=== PATIENT | female | born 1945 | race Caucasian/White ===

== ENCOUNTER 2017-09-23 10:14 | Inpatient (IN) | payer OTHER, MEDICARE ==
[~2017-09-23] VITALS: Ht 165.1 cm; Wt 91.2 kg
[2017-09-23] VITALS (9 sets, daily range): BP systolic 121–144; BP diastolic 63–102
[~2017-09-23 10:14] MED LIST: ATORVASTATIN CA40 MG PO; AVALIDE 150/1 TABLET PO; AVALIDE 300/1 TABLET PO; BACTRIM,SEPT1 TABLET PO; BETHANECHOL CHL25 MG PO; BRILINTA90 MG PO; DAILY VALUE1 EACH PO; FERROUS SULFAT325 MG PO; LEVEMIR100 UNIT/2 SC; LO-DOSE ASPIRIN81 M2 PO; LOPRESSOR25 MG PO; NOVOLOG 10100 UNITS/ SC; URIBEL CAPSULE1 EACH PO
[2017-09-23 11:06] LABS: HEMATOCRIT 25.5 % (36.0-46.0); MCH 28.4 PG (29.0-34.0); MCHC 32.5 G/DL (30.0-36.0); MCV 87.3 FL (83-99); PLATELET COUNT 344 K/uL (156-360); RBC DIS.WIDTH-CV 12.5 % (11.8-14.6); RBC DIS.WIDTH-SD 40.1 % (39-53); RED BLOOD COUNT 2.92 M/uL (3.80-5.20); WHITE BLOOD COUNT 25.8 K/uL (4.1-10.2)
[2017-09-23 11:17] LABS: CHLORIDE 99 mEq/L (99-109); POTASSIUM 4.6 mEq/L (3.7-5.4); SODIUM 131 mEq/L (136-147)
[2017-09-23 11:20] LABS: ANION GAP 21 MEQ/L (2-14); GLUCOSE 720 mg/dL (70-99)
[2017-09-23 11:23] LABS: GFR ESTIMATE (CALCULATED) 23 mL/min/; UREA NITROGEN (BUN) 28 mg/dL (9-23)
[2017-09-23 11:53] LABS: ADD MIUA? YES; BILIRUBIN NEGATIVE; BLOOD MODERATE; COLOR YELLOW ((YELLOW)); GLUCOSE (STRIP) >=500; KETONES 20; LEUKOCYTES SMALL; NITRITE NEGATIVE; PROTEIN (STRIP) >=500; SPECIFIC GRAVITY 1.018 (1.000-1.030); UROBILINOGEN 0.2 MG/DL (0.2-1.0)
[2017-09-23 11:59] LABS: DEVICE RA; HEMOGLOBIN 8.2 (11.9-15.5); PCO2 22 mm Hg (35-45); PO2 84 mm Hg (80-100); SITE RR; TOTAL RESP RATE 18 resp/min; pH 7.29 (7.35-7.45)
[2017-09-23 12:00] LABS: BASE EXCESS -14.5 mEq/L (-3 to +3); BICARBONATE 10.6 mEq/L (22-26); CARBOXY HGB 0.6 % (0-5); COMMENTS - BLOOD GASES A+C+; METHEMOGLOBIN 1.1 % (0-1.5); O2 SATURATION (CALCULATED) 95.6 % (95-99)
[2017-09-23 12:06] LABS: SAMPLE HEMOLYSIS CHECK 0; SAMPLE ICTERIC CHECK 0; SAMPLE LIPEMIA CHECK 0
[2017-09-23 12:09] LABS: AMORPHOUS URATES CRYSTALS 1+; BACTERIA 3+ /HPF; CASTS NONE SEEN /LPF; CRYSTALS PRESENT; EPITHELIAL CELLS 1+ /HPF; MUCUS NONE SEEN /LPF; RED BLOOD CELLS 0-5 /HPF (0-5); WHITE BLOOD CELLS TNTC /HPF (0-5)
[2017-09-23 13:17] LABS: Estimated Average Glucose 240 mg/dL (70-123)
[2017-09-23] MEDS ORDERED: BRILINTA90 MG PO (13:47)
[2017-09-23] MEDS ORDERED: LOPRESSOR25 MG PO (13:48)
[2017-09-23] MEDS ORDERED: LOSARTAN POTASS50 MG PO (13:49)
[2017-09-23] MEDS ORDERED: NOVOLOG 10100 UNITS/ SC (13:55)
[2017-09-23] MEDS ORDERED: ATORVASTATIN CA40 MG PO (13:56)
[2017-09-23] MEDS ORDERED: FUROSEMIDE20 MG PO (13:57)
[2017-09-23] MEDS ORDERED: NITROSTAT0.4 MG SL (13:58)
[2017-09-23 16:52] LABS: ANION GAP 12 MEQ/L (2-14); CHLORIDE 105 MEQ/L (99-109); GFR ESTIMATE (CALCULATED) 26 mL/min/; GLUCOSE 440 mg/dL (70-99); POTASSIUM 3.6 MEQ/L (3.7-5.4); SAMPLE HEMOLYSIS CHECK 0; SAMPLE ICTERIC CHECK 0; SAMPLE LIPEMIA CHECK 0; SODIUM 134 MEQ/L (136-147); UREA NITROGEN (BUN) 30 mg/dL (9-23)
[2017-09-23 16:58] LABS: METH RESISTANT S AUREUS PCR NEGATIVE (NEGATIVE)
[2017-09-23 17:01] LABS: PROBE CHECK PASS; SPECIMEN PROCESSING CONTROL PASS
[2017-09-23 17:12] LABS: C DIFF TOXIN NEGATIVE (NEGATIVE)
[2017-09-23 17:15] LABS: PROBE CHECK PASS; SPECIMEN PROCESSING CONTROL PASS
[2017-09-23 17:25] LABS: POINT-OF-CARE METER ID UU13113748
[2017-09-23 18:31] LABS: POINT-OF-CARE METER ID UU13113731
[2017-09-23 19:35] LABS: POINT-OF-CARE METER ID UU13113748
[2017-09-23 20:33] LABS: ANION GAP 9 MEQ/L (2-14); CHLORIDE 107 MEQ/L (99-109); POTASSIUM 3.6 MEQ/L (3.7-5.4); SAMPLE HEMOLYSIS CHECK 0; SAMPLE ICTERIC CHECK 0; SAMPLE LIPEMIA CHECK 0; SODIUM 134 MEQ/L (136-147)
[2017-09-23 20:38] LABS: POINT-OF-CARE METER ID UU13113748
[2017-09-23 20:39] LABS: GFR ESTIMATE (CALCULATED) 28 mL/min/; GLUCOSE 276 mg/dL (70-99); UREA NITROGEN (BUN) 30 mg/dL (9-23)
[2017-09-23 21:27] LABS: POINT-OF-CARE METER ID UU13113748
[2017-09-23 22:41] LABS: POINT-OF-CARE METER ID UU13113731
[2017-09-23 23:37] LABS: POINT-OF-CARE METER ID UU13113731
[2017-09-24] VITALS (16 sets, daily range): BP systolic 126–172; BP diastolic 58–99
[2017-09-24 00:14] LABS: POTASSIUM 3.9 mEq/L (3.7-5.4); SODIUM 136 mEq/L (136-147)
[2017-09-24 00:16] LABS: GLUCOSE 151 mg/dL (70-99)
[2017-09-24 00:18] LABS: ANION GAP 9 MEQ/L (2-14)
[2017-09-24 00:20] LABS: GFR ESTIMATE (CALCULATED) 26 mL/min/
[2017-09-24 00:21] LABS: UREA NITROGEN (BUN) 32 mg/dL (9-23)
[2017-09-24 00:22] LABS: CHLORIDE 110 mEq/L (99-109)
[2017-09-24 00:35] LABS: POINT-OF-CARE METER ID UU13113731
[2017-09-24 01:36] LABS: POINT-OF-CARE METER ID UU13113731
[2017-09-24 03:38] LABS: POINT-OF-CARE METER ID UU13113731
[2017-09-24 04:32] LABS: POINT-OF-CARE METER ID UU13113731
[2017-09-24 05:15] LABS: CHLORIDE 109 mEq/L (99-109); POTASSIUM 4.4 mEq/L (3.7-5.4); SODIUM 138 mEq/L (136-147)
[2017-09-24 05:17] LABS: GLUCOSE 166 mg/dL (70-99)
[2017-09-24 05:18] LABS: ANION GAP 13 MEQ/L (2-14)
[2017-09-24 05:21] LABS: GFR ESTIMATE (CALCULATED) 29 mL/min/; UREA NITROGEN (BUN) 32 mg/dL (9-23)
[2017-09-24 05:32] LABS: POINT-OF-CARE METER ID UU13113731
[2017-09-24 06:38] LABS: POINT-OF-CARE METER ID UU13113731
[2017-09-24 08:00] LABS: POINT-OF-CARE METER ID UU13113731
[2017-09-24 08:46] LABS: HEMATOCRIT 23.2 % (36.0-46.0); MCH 28.9 PG (29.0-34.0); MCHC 33.2 G/DL (30.0-36.0); MCV 87.2 FL (83-99); MEAN PLAT.VOLUME 9.9 uM^3 (9.5-12.4); PLATELET COUNT 294 K/uL (156-360); RBC DIS.WIDTH-SD 41.1 % (39-53); RED BLOOD COUNT 2.66 M/uL (3.80-5.20); WHITE BLOOD COUNT 19.3 K/uL (4.1-10.2)
[2017-09-24 08:49] LABS: POINT-OF-CARE METER ID UU13113731
[2017-09-24 09:11] LABS: ANION GAP 9 MEQ/L (2-14); CHLORIDE 109 MEQ/L (99-109); GFR ESTIMATE (CALCULATED) 31 mL/min/; GLUCOSE 157 mg/dL (70-99); POTASSIUM 4.3 MEQ/L (3.7-5.4); SAMPLE HEMOLYSIS CHECK 0; SAMPLE ICTERIC CHECK 0; SAMPLE LIPEMIA CHECK 0; SODIUM 137 MEQ/L (136-147); UREA NITROGEN (BUN) 32 mg/dL (9-23)
[2017-09-24 10:07] LABS: POINT-OF-CARE METER ID UU13113731
[2017-09-24 11:14] LABS: POINT-OF-CARE METER ID UU13113731
[2017-09-24 12:17] LABS: POINT-OF-CARE METER ID UU13113731
[2017-09-24 13:40] LABS: POINT-OF-CARE METER ID UU13113731
[2017-09-24 14:04] LABS: POINT-OF-CARE METER ID UU14314082
[2017-09-24 15:12] LABS: POINT-OF-CARE METER ID UU14314082
[2017-09-24 17:21] LABS: POINT-OF-CARE METER ID UU14314082
[2017-09-24 17:43] LABS: ANION GAP 7 MEQ/L (2-14); CHLORIDE 105 MEQ/L (99-109); GFR ESTIMATE (CALCULATED) 34 mL/min/; GLUCOSE 224 mg/dL (70-99); POTASSIUM 4.2 MEQ/L (3.7-5.4); SAMPLE HEMOLYSIS CHECK 0; SAMPLE ICTERIC CHECK 0; SAMPLE LIPEMIA CHECK 0; SODIUM 131 MEQ/L (136-147); UREA NITROGEN (BUN) 31 mg/dL (9-23)
[2017-09-24 20:45] LABS: POINT-OF-CARE METER ID UU13113748
[2017-09-24 23:49] LABS: POINT-OF-CARE METER ID UU13113748
[2017-09-25] VITALS (10 sets, daily range): BP systolic 0–182; BP diastolic 0–106
[2017-09-25 02:22] LABS: POINT-OF-CARE METER ID UU13113731
[2017-09-25 06:23] LABS: ANION GAP 9 MEQ/L (2-14); CHLORIDE 106 MEQ/L (99-109); GFR ESTIMATE (CALCULATED) 39 mL/min/; GLUCOSE 144 mg/dL (70-99); POTASSIUM 4.2 MEQ/L (3.7-5.4); SAMPLE HEMOLYSIS CHECK 0; SAMPLE ICTERIC CHECK 0; SAMPLE LIPEMIA CHECK 0; SODIUM 136 MEQ/L (136-147); UREA NITROGEN (BUN) 28 mg/dL (9-23)
[2017-09-25 07:42] LABS: EOSINOPHIL (%) 0.3 % (0-5); EOSINOPHIL COUNT 0.1 K/uL (0-0.3); HEMATOCRIT 23.3 % (36.0-46.0); IMMATURE GRANULOCYTE (%) 0.9 % (0.0-0.7); IMMATURE GRANULOCYTE COUNT 0.2 K/uL; INSTRUMENT ABS NEUTROPHIL CT 15.8 K/uL; LYMPHOCYTE COUNT 0.6 K/uL (1.0-2.8); MCH 29.2 PG (29.0-34.0); MCV 88.3 FL (83-99); MEAN PLAT.VOLUME 10.3 uM^3 (9.5-12.4); MONOCYTE (%) 5.2 % (3-12); MONOCYTE COUNT 0.9 K/uL (0-0.8); NEUTROPHIL (%) 89.9 % (45-76); NEUTROPHIL COUNT 15.8 K/uL (1.8-6.4); PLATELET COUNT 315 K/uL (156-360); RBC DIS.WIDTH-CV 13.1 % (11.8-14.6); RBC DIS.WIDTH-SD 41.8 % (39-53); RED BLOOD COUNT 2.64 M/uL (3.80-5.20); WHITE BLOOD COUNT 17.6 K/uL (4.1-10.2)
[2017-09-25 07:53] LABS: MAGNESIUM 1.7 mg/dl (1.3-2.7)
[2017-09-25 11:54] LABS: POINT-OF-CARE METER ID UU14314084
[2017-09-25 14:28] LABS: ANION GAP 11 MEQ/L (2-14); CHLORIDE 106 MEQ/L (99-109); GFR ESTIMATE (CALCULATED) 36 mL/min/; POTASSIUM 3.9 MEQ/L (3.7-5.4); SAMPLE HEMOLYSIS CHECK 0; SAMPLE ICTERIC CHECK 0; SAMPLE LIPEMIA CHECK 0; SODIUM 134 MEQ/L (136-147); UREA NITROGEN (BUN) 27 mg/dL (9-23)
[2017-09-25 14:29] LABS: GLUCOSE 102 mg/dL (70-99)
[2017-09-25 16:55] LABS: POINT-OF-CARE METER ID UU14314084
[2017-09-25 21:28] LABS: POINT-OF-CARE METER ID UU13113702
[2017-09-25 21:28] LABS: POINT-OF-CARE METER ID UU13113731
[2017-09-25 21:28] LABS: POINT-OF-CARE METER ID UU13113702
[2017-09-25 21:28] LABS: POINT-OF-CARE METER ID UU13113702
[2017-09-25 22:07] LABS: POINT-OF-CARE METER ID UU14162508
[2017-09-26] VITALS (10 sets, daily range): BP systolic 161–189; BP diastolic 75–92
[2017-09-26 05:55] LABS: EOSINOPHIL (%) 0.8 % (0-5); EOSINOPHIL COUNT 0.1 K/uL (0-0.3); HEMATOCRIT 22.1 % (36.0-46.0); IMMATURE GRANULOCYTE (%) 0.9 % (0.0-0.7); IMMATURE GRANULOCYTE COUNT 0.1 K/uL; INSTRUMENT ABS NEUTROPHIL CT 10.6 K/uL; LYMPHOCYTE COUNT 1.2 K/uL (1.0-2.8); MCH 27.5 PG (29.0-34.0); MCHC 32.1 G/DL (30.0-36.0); MCV 85.7 FL (83-99); MEAN PLAT.VOLUME 9.8 uM^3 (9.5-12.4); MONOCYTE COUNT 0.8 K/uL (0-0.8); NEUTROPHIL (%) 82.9 % (45-76); NEUTROPHIL COUNT 10.6 K/uL (1.8-6.4); PLATELET COUNT 342 K/uL (156-360); RBC DIS.WIDTH-CV 12.9 % (11.8-14.6); RBC DIS.WIDTH-SD 40.8 % (39-53); RED BLOOD COUNT 2.58 M/uL (3.80-5.20); WHITE BLOOD COUNT 12.8 K/uL (4.1-10.2)
[2017-09-26 06:32] LABS: ANION GAP 8 MEQ/L (2-14); CHLORIDE 107 MEQ/L (99-109); GFR ESTIMATE (CALCULATED) 36 mL/min/; POTASSIUM 3.9 MEQ/L (3.7-5.4); SAMPLE HEMOLYSIS CHECK 0; SAMPLE ICTERIC CHECK 0; SAMPLE LIPEMIA CHECK 0; SODIUM 136 MEQ/L (136-147); UREA NITROGEN (BUN) 28 mg/dL (9-23)
[2017-09-26 06:34] LABS: GLUCOSE 65 mg/dL (70-99)
[2017-09-26 06:38] LABS: POINT-OF-CARE METER ID UU14162508
[2017-09-26 07:21] LABS: POINT-OF-CARE METER ID UU14314084
[2017-09-26 11:34] LABS: POINT-OF-CARE METER ID UU14208750
[2017-09-26 15:17] LABS: POINT-OF-CARE METER ID UU14314084
[2017-09-26 15:23] LABS: ANION GAP 12 MEQ/L (2-14); CHLORIDE 105 MEQ/L (99-109); POTASSIUM 3.8 MEQ/L (3.7-5.4); SAMPLE HEMOLYSIS CHECK 0; SAMPLE ICTERIC CHECK 0; SAMPLE LIPEMIA CHECK 0; SODIUM 137 MEQ/L (136-147)
[2017-09-26 15:33] LABS: GFR ESTIMATE (CALCULATED) 36 mL/min/; GLUCOSE 61 mg/dL (70-99); UREA NITROGEN (BUN) 27 mg/dL (9-23)
[2017-09-26 15:43] LABS: POINT-OF-CARE METER ID UU14314084
[2017-09-26 17:15] LABS: POINT-OF-CARE METER ID UU14162508
[2017-09-26 17:54] LABS: POINT-OF-CARE METER ID UU14208750
[2017-09-26 19:55] LABS: POINT-OF-CARE METER ID UU13113675
[2017-09-26 21:47] LABS: POINT-OF-CARE METER ID UU14162508
[2017-09-27] VITALS (7 sets, daily range): BP systolic 118–193; BP diastolic 68–88
[2017-09-27 06:34] LABS: POINT-OF-CARE METER ID UU14162508
[2017-09-27 08:44] LABS: EOSINOPHIL (%) 0.9 % (0-5); EOSINOPHIL COUNT 0.1 K/uL (0-0.3); HEMATOCRIT 26.4 % (36.0-46.0); IMMATURE GRANULOCYTE COUNT 0.1 K/uL; INSTRUMENT ABS NEUTROPHIL CT 10.9 K/uL; LYMPHOCYTE COUNT 1.1 K/uL (1.0-2.8); MCH 29.3 PG (29.0-34.0); MCHC 33.7 G/DL (30.0-36.0); MCV 86.8 FL (83-99); MEAN PLAT.VOLUME 9.7 uM^3 (9.5-12.4); MONOCYTE (%) 6.9 % (3-12); MONOCYTE COUNT 0.9 K/uL (0-0.8); NEUTROPHIL (%) 82.5 % (45-76); NEUTROPHIL COUNT 10.9 K/uL (1.8-6.4); PLATELET COUNT 335 K/uL (156-360); RBC DIS.WIDTH-SD 41.2 % (39-53); RED BLOOD COUNT 3.04 M/uL (3.80-5.20); WHITE BLOOD COUNT 13.3 K/uL (4.1-10.2)
[2017-09-27 09:13] LABS: ANION GAP 13 MEQ/L (2-14); CHLORIDE 106 MEQ/L (99-109); GFR ESTIMATE (CALCULATED) 36 mL/min/; POTASSIUM 3.7 MEQ/L (3.7-5.4); SAMPLE HEMOLYSIS CHECK 0; SAMPLE ICTERIC CHECK 0; SAMPLE LIPEMIA CHECK 0; SODIUM 140 MEQ/L (136-147); UREA NITROGEN (BUN) 22 mg/dL (9-23)
[2017-09-27 09:22] LABS: GLUCOSE 129 mg/dL (70-99)
[2017-09-27 11:33] LABS: POINT-OF-CARE METER ID UU14162508
[2017-09-27 16:11] LABS: POINT-OF-CARE METER ID UU14162508
[2017-09-27 21:43] LABS: POINT-OF-CARE METER ID UU14162508
[2017-09-28] VITALS (10 sets, daily range): BP systolic 161–191; BP diastolic 71–87
[2017-09-28 06:36] LABS: POINT-OF-CARE METER ID UU14208750
[2017-09-28 08:42] LABS: BASOPHIL COUNT 0.1 K/uL (0-0.1); EOSINOPHIL (%) 2.5 % (0-5); EOSINOPHIL COUNT 0.3 K/uL (0-0.3); HEMATOCRIT 25.4 % (36.0-46.0); IMMATURE GRANULOCYTE (%) 2.7 % (0.0-0.7); IMMATURE GRANULOCYTE COUNT 0.3 K/uL; INSTRUMENT ABS NEUTROPHIL CT 8.2 K/uL; LYMPHOCYTE COUNT 1.3 K/uL (1.0-2.8); MCH 28.2 PG (29.0-34.0); MCHC 32.3 G/DL (30.0-36.0); MCV 87.3 FL (83-99); MEAN PLAT.VOLUME 9.5 uM^3 (9.5-12.4); MONOCYTE (%) 7.4 % (3-12); MONOCYTE COUNT 0.8 K/uL (0-0.8); NEUTROPHIL COUNT 8.2 K/uL (1.8-6.4); PLATELET COUNT 346 K/uL (156-360); RBC DIS.WIDTH-CV 12.8 % (11.8-14.6); RBC DIS.WIDTH-SD 40.7 % (39-53); RED BLOOD COUNT 2.91 M/uL (3.80-5.20); WHITE BLOOD COUNT 10.9 K/uL (4.1-10.2)
[2017-09-28 08:57] LABS: ANION GAP 10 MEQ/L (2-14); CHLORIDE 108 MEQ/L (99-109); GFR ESTIMATE (CALCULATED) 39 mL/min/; GLUCOSE 128 mg/dL (70-99); SAMPLE HEMOLYSIS CHECK 0; SAMPLE ICTERIC CHECK 0; SAMPLE LIPEMIA CHECK 0; SODIUM 141 MEQ/L (136-147); UREA NITROGEN (BUN) 23 mg/dL (9-23)
[2017-09-28 12:08] LABS: POINT-OF-CARE METER ID UU14208750
[2017-09-28 16:50] LABS: POINT-OF-CARE METER ID UU14162508
[2017-09-28 21:56] LABS: POINT-OF-CARE METER ID UU13113675
[2017-09-28 22:46] LABS: POINT-OF-CARE METER ID UU14162508
[2017-09-28 23:36] LABS: MCV 87.8 FL (83-99)
[2017-09-29] VITALS (14 sets, daily range): BP systolic 118–195; BP diastolic 70–89
[2017-09-29 06:08] LABS: BASOPHIL COUNT 0.1 K/uL (0-0.1); EOSINOPHIL (%) 3.1 % (0-5); EOSINOPHIL COUNT 0.3 K/uL (0-0.3); HEMATOCRIT 26.3 % (36.0-46.0); IMMATURE GRANULOCYTE (%) 4.8 % (0.0-0.7); IMMATURE GRANULOCYTE COUNT 0.5 K/uL; LYMPHOCYTE COUNT 1.2 K/uL (1.0-2.8); MCH 29.1 PG (29.0-34.0); MCHC 32.7 G/DL (30.0-36.0); MCV 88.9 FL (83-99); MEAN PLAT.VOLUME 9.4 uM^3 (9.5-12.4); MONOCYTE (%) 7.1 % (3-12); MONOCYTE COUNT 0.8 K/uL (0-0.8); NEUTROPHIL (%) 73.3 % (45-76); PLATELET COUNT 321 K/uL (156-360); RBC DIS.WIDTH-CV 13.1 % (11.8-14.6); RBC DIS.WIDTH-SD 42.1 % (39-53); RED BLOOD COUNT 2.96 M/uL (3.80-5.20); WHITE BLOOD COUNT 10.9 K/uL (4.1-10.2)
[2017-09-29 06:33] LABS: ANION GAP 9 MEQ/L (2-14); CHLORIDE 107 MEQ/L (99-109); GFR ESTIMATE (CALCULATED) 34 mL/min/; GLUCOSE 146 mg/dL (70-99); POTASSIUM 4.1 MEQ/L (3.7-5.4); SAMPLE HEMOLYSIS CHECK 0; SAMPLE ICTERIC CHECK 0; SAMPLE LIPEMIA CHECK 0; SODIUM 138 MEQ/L (136-147); UREA NITROGEN (BUN) 25 mg/dL (9-23)
[2017-09-29 06:44] LABS: POINT-OF-CARE METER ID UU14208750
[2017-09-29 11:18] LABS: POINT-OF-CARE METER ID UU14162508; POINT-OF-CARE USER ID PUTDRM
[2017-09-29 17:03] LABS: POINT-OF-CARE METER ID UU14208750; POINT-OF-CARE USER ID PUTDRM
[2017-09-29 21:31] LABS: POINT-OF-CARE METER ID UU14208750
[2017-09-30] VITALS (8 sets, daily range): BP systolic 175–195; BP diastolic 72–82
[2017-09-30 06:33] LABS: POINT-OF-CARE METER ID UU14162508
[2017-09-30 06:58] LABS: POINT-OF-CARE METER ID UU14162508
[2017-09-30 11:32] LABS: POINT-OF-CARE METER ID UU14162508
[2017-09-30 16:20] LABS: POINT-OF-CARE METER ID UU14162508
[2017-09-30 21:58] LABS: POINT-OF-CARE METER ID UU14162508
[2017-10-01 03:42] VITALS: BP 170/80
[2017-10-01 06:46] LABS: POINT-OF-CARE METER ID UU14162508
[2017-10-01 07:10] VITALS: BP 158/78
[2017-10-01 07:46] LABS: HEMATOCRIT 26.7 % (36.0-46.0); MCH 30.1 PG (29.0-34.0); MCHC 33.7 G/DL (30.0-36.0); MCV 89.3 FL (83-99); MEAN PLAT.VOLUME 9.2 uM^3 (9.5-12.4); PLATELET COUNT 323 K/uL (156-360); RBC DIS.WIDTH-CV 13.5 % (11.8-14.6); RBC DIS.WIDTH-SD 43.1 % (39-53); RED BLOOD COUNT 2.99 M/uL (3.80-5.20); WHITE BLOOD COUNT 8.6 K/uL (4.1-10.2)
[2017-10-01 08:16] LABS: ANION GAP 13 MEQ/L (2-14); CHLORIDE 106 MEQ/L (99-109); GFR ESTIMATE (CALCULATED) 36 mL/min/; GLUCOSE 131 mg/dL (70-99); POTASSIUM 3.6 MEQ/L (3.7-5.4); SAMPLE HEMOLYSIS CHECK 0; SAMPLE ICTERIC CHECK 0; SAMPLE LIPEMIA CHECK 0; SODIUM 142 MEQ/L (136-147); UREA NITROGEN (BUN) 18 mg/dL (9-23)
[2017-10-01 11:00] VITALS: BP 182/91
[2017-10-01 11:37] LABS: POINT-OF-CARE METER ID UU14162508
[2017-10-01 16:52] VITALS: BP 142/78
[2017-10-01 16:59] LABS: POINT-OF-CARE METER ID UU14162508
[2017-10-01 19:49] VITALS: BP 160/80
[2017-10-01 21:49] LABS: POINT-OF-CARE METER ID UU14162508
[2017-10-01 23:31] VITALS: BP 173/77
[2017-10-02 06:32] LABS: POINT-OF-CARE METER ID UU14208750
[2017-10-02 07:35] LABS: ANION GAP 9 MEQ/L (2-14); CHLORIDE 106 MEQ/L (99-109); GFR ESTIMATE (CALCULATED) 43 mL/min/; POTASSIUM 4.1 MEQ/L (3.7-5.4); SAMPLE HEMOLYSIS CHECK 0; SAMPLE ICTERIC CHECK 0; SAMPLE LIPEMIA CHECK 0; SODIUM 140 MEQ/L (136-147); UREA NITROGEN (BUN) 18 mg/dL (9-23)
[2017-10-02 07:36] LABS: GLUCOSE 197 mg/dL (70-99)
[2017-10-02 09:42] VITALS: BP 144/80
[2017-10-02 11:53] LABS: POINT-OF-CARE METER ID UU14162508
[2017-10-02 17:04] LABS: POINT-OF-CARE METER ID UU14208750
[2017-10-02 17:18] VITALS: BP 148/78
[2017-10-02 21:22] LABS: POINT-OF-CARE METER ID UU14208750
[2017-10-02 23:38] VITALS: BP 168/75
[2017-10-03 06:44] LABS: POINT-OF-CARE METER ID UU14314084
[2017-10-03 06:53] LABS: HEMATOCRIT 21.3 % (36.0-46.0); MCH 29.1 PG (29.0-34.0); MCHC 33.3 G/DL (30.0-36.0); MCV 87.3 FL (83-99); MEAN PLAT.VOLUME 9.5 uM^3 (9.5-12.4); PLATELET COUNT 310 K/uL (156-360); RBC DIS.WIDTH-CV 13.3 % (11.8-14.6); RED BLOOD COUNT 2.44 M/uL (3.80-5.20); WHITE BLOOD COUNT 8.4 K/uL (4.1-10.2)
[2017-10-03 07:11] LABS: INTER. NORMALIZED RATIO 1.1; PROTHROMBIN TIME 12.6 SEC (10.2-12.9)
[2017-10-03 07:24] LABS: ANION GAP 9 MEQ/L (2-14); CHLORIDE 104 MEQ/L (99-109); GFR ESTIMATE (CALCULATED) 43 mL/min/; GLUCOSE 155 mg/dL (70-99); SAMPLE HEMOLYSIS CHECK 0; SAMPLE ICTERIC CHECK 0; SAMPLE LIPEMIA CHECK 0; SODIUM 138 MEQ/L (136-147); UREA NITROGEN (BUN) 16 mg/dL (9-23)
[2017-10-03 07:40] VITALS: BP 200/82
[2017-10-03 12:02] LABS: POINT-OF-CARE METER ID UU14314084
[2017-10-03 16:27] LABS: POINT-OF-CARE METER ID UU13113675
[2017-10-03 18:31] VITALS: BP 190/72
[2017-10-03 21:47] LABS: POINT-OF-CARE METER ID UU14208750
[2017-10-03 23:27] VITALS: BP 160/80
[2017-10-04 03:30] VITALS: BP 160/85
[2017-10-04 06:29] LABS: POINT-OF-CARE METER ID UU14208750
[2017-10-04 06:55] LABS: HEMATOCRIT 23.6 % (36.0-46.0); MCH 29.6 PG (29.0-34.0); MCHC 33.9 G/DL (30.0-36.0); MCV 87.4 FL (83-99); MEAN PLAT.VOLUME 9.8 uM^3 (9.5-12.4); PLATELET COUNT 297 K/uL (156-360); RBC DIS.WIDTH-CV 13.7 % (11.8-14.6); RBC DIS.WIDTH-SD 42.6 % (39-53); WHITE BLOOD COUNT 10.6 K/uL (4.1-10.2)
[2017-10-04 07:19] LABS: ANION GAP 7 MEQ/L (2-14); CHLORIDE 101 MEQ/L (99-109); GFR ESTIMATE (CALCULATED) 43 mL/min/; GLUCOSE 130 mg/dL (70-99); POTASSIUM 3.6 MEQ/L (3.7-5.4); SAMPLE HEMOLYSIS CHECK 0; SAMPLE ICTERIC CHECK 0; SAMPLE LIPEMIA CHECK 0; SODIUM 137 MEQ/L (136-147); UREA NITROGEN (BUN) 13 mg/dL (9-23)
[2017-10-04 07:38] VITALS: BP 183/81
[2017-10-04 11:37] VITALS: BP 169/74
[2017-10-04 11:54] LABS: POINT-OF-CARE METER ID UU14208750
[2017-10-04 15:56] VITALS: BP 175/76
[2017-10-04 16:29] LABS: POINT-OF-CARE METER ID UU14208750
[2017-10-04 19:15] VITALS: BP 153/65
[2017-10-04 21:56] LABS: POINT-OF-CARE METER ID UU14208750
[2017-10-04 23:00] VITALS: BP 180/79
[2017-10-05 03:00] VITALS: BP 167/72
[2017-10-05 06:27] LABS: POINT-OF-CARE METER ID UU14208750
[2017-10-05 07:10] LABS: BASOPHIL COUNT 0.1 K/uL (0-0.1); EOSINOPHIL (%) 1.5 % (0-5); EOSINOPHIL COUNT 0.2 K/uL (0-0.3); HEMATOCRIT 23.1 % (36.0-46.0); IMMATURE GRANULOCYTE (%) 1.2 % (0.0-0.7); IMMATURE GRANULOCYTE COUNT 0.1 K/uL; INSTRUMENT ABS NEUTROPHIL CT 8.9 K/uL; LYMPHOCYTE COUNT 1.1 K/uL (1.0-2.8); MCH 28.9 PG (29.0-34.0); MCHC 33.3 G/DL (30.0-36.0); MCV 86.8 FL (83-99); MEAN PLAT.VOLUME 9.9 uM^3 (9.5-12.4); MONOCYTE COUNT 0.7 K/uL (0-0.8); NEUTROPHIL (%) 80.8 % (45-76); NEUTROPHIL COUNT 8.9 K/uL (1.8-6.4); PLATELET COUNT 316 K/uL (156-360); RBC DIS.WIDTH-CV 13.6 % (11.8-14.6); RBC DIS.WIDTH-SD 42.4 % (39-53); RED BLOOD COUNT 2.66 M/uL (3.80-5.20)
[2017-10-05 07:30] VITALS: BP 165/80
[2017-10-05 07:32] LABS: ANION GAP 8 MEQ/L (2-14); CHLORIDE 101 MEQ/L (99-109); GFR ESTIMATE (CALCULATED) 43 mL/min/; GLUCOSE 168 mg/dL (70-99); MAGNESIUM 1.5 mg/dl (1.3-2.7); POTASSIUM 3.6 MEQ/L (3.7-5.4); SAMPLE HEMOLYSIS CHECK 0; SAMPLE ICTERIC CHECK 0; SAMPLE LIPEMIA CHECK 0; SODIUM 138 MEQ/L (136-147); UREA NITROGEN (BUN) 15 mg/dL (9-23)
[2017-10-05 12:35] LABS: POINT-OF-CARE METER ID UU14162508
[2017-10-05] MEDS ORDERED: AUGMENTIN875 MG PO (14:20)
[2017-10-05] MEDS ORDERED: LEVEMIR FL100 UNIT/1 SC (14:24)
[2017-10-05] MEDS ORDERED: HYDRALAZINE HCL25 MG PO (14:31)
[2017-10-05 15:37] VITALS: BP 170/60
[2017-10-05 16:48] LABS: POINT-OF-CARE METER ID UU14162508
== END 2017-10-05 18:03 | DRG 853 ==
LOC: EME 10:14 → 4WEST 13:24 → EDOF 13:24 → 2EAST 13:24 → ENRESERV 13:25 → EDOF 13:35 → 4WEST 15:13 → ENRESERV 09-25 06:41 → 2EAST 09-25 11:15
PROVIDERS: Emergency Medicine; Family Medicine; Internal Medicine; Internal Medicine Critical Care Medicine; Physician Assistant; Podiatrist Foot & Ankle Surgery; Surgery
DX: A40.1 Sepsis due to streptococcus, group B (principal); A48.0 Gas gangrene; E11.10 Type 2 diabetes mellitus with ketoacidosis without coma; E11.69 Type 2 diabetes mellitus with other specified complication; M86.9 Osteomyelitis, unspecified; E11.621 Type 2 diabetes mellitus with foot ulcer; L97.514 Non-pressure chronic ulcer of other part of right foot with necrosis of bone; L03.115 Cellulitis of right lower limb; L03.116 Cellulitis of left lower limb; N17.9 Acute kidney failure, unspecified; N39.0 Urinary tract infection, site not specified; B96.20 Unspecified Escherichia coli [E. coli] as the cause of diseases classified elsewhere; E87.1 Hypo-osmolality and hyponatremia; E11.649 Type 2 diabetes mellitus with hypoglycemia without coma; E11.42 Type 2 diabetes mellitus with diabetic polyneuropathy; E11.43 Type 2 diabetes mellitus with diabetic autonomic (poly)neuropathy; K31.84 Gastroparesis; D62 Acute posthemorrhagic anemia; D63.8 Anemia in other chronic diseases classified elsewhere; I13.0 Hypertensive heart and chronic kidney disease with heart failure and stage 1 through stage 4 chronic kidney disease, or unspecified chronic kidney disease; I50.22 Chronic systolic (congestive) heart failure; E11.22 Type 2 diabetes mellitus with diabetic chronic kidney disease; N18.3 Chronic kidney disease, stage 3 (moderate); I25.10 Atherosclerotic heart disease of native coronary artery without angina pectoris; I25.2 Old myocardial infarction; K21.9 Gastro-esophageal reflux disease without esophagitis; K59.00 Constipation, unspecified; R32 Unspecified urinary incontinence; R33.9 Retention of urine, unspecified; E66.9 Obesity, unspecified; Z68.33 Body mass index [BMI] 33.0-33.9, adult; Z79.4 Long term (current) use of insulin; Z83.3 Family history of diabetes mellitus; Z85.42 Personal history of malignant neoplasm of other parts of uterus; Z86.73 Personal history of transient ischemic attack (TIA), and cerebral infarction without residual deficits; Z91.19 Patient's noncompliance with other medical treatment and regimen; Z98.61 Coronary angioplasty status
CPT/HCPCS: 36600; 71010; 73630; 73720; 80048; 80048 91; 81003; 82010; 82272; 82803; 82948; 83036; 83605; 83735; 84100; 84484; 85014; 85018; 85025; 85027; 85610; 85730; 86850; 86900; 86901; 86920; 87040; 87070; 87075; 87077; 87086; 87186; 87205; 87493; 87641; 87801; 88305; 88311; 93005; 99281; 99285; C1753; J0295; J0330; J0360; J0692; J1170; J1644; J1815; J1940; J2250; J2405; J2543; J2765; J3010; J3370; J7030; J7040; J7050; P9016; S0020

== ENCOUNTER 2018-01-19 14:13 | Inpatient (IN) | payer OTHER, MEDICARE ==
[~2018-01-19] VITALS: Ht 162.6 cm; Wt 66.9 kg
[~2018-01-19 14:13] MED LIST changes: +AMLODIPINE BESYL5 MG PO; +AUGMENTIN875 MG PO; +CAL-CITRATE PL1 EACH PO; +FEOSOL325 MG PO; +FUROSEMIDE20 MG PO; +HYDRALAZINE HCL25 MG PO; +HYDRALAZINE HCL50 MG PO; +LEVEMIR FL100 UNIT/1 SC; +LOSARTAN POTAS100 MG PO; +LOSARTAN POTASS50 MG PO; +NITROSTAT0.4 MG SL
[2018-01-19 14:51] LABS: HEMATOCRIT 29.5 % (36.0-46.0); HEMOGLOBIN 9.2 G/DL (11.9-15.5); MCH 27.3 PG (29.0-34.0); MCHC 31.2 G/DL (30.0-36.0); NRBC (%) 0.4 /100 WBC (0-0); PLATELET COUNT 423 K/uL (156-360); RBC DIS.WIDTH-CV 16.9 % (11.8-14.6); RED BLOOD COUNT 3.37 M/uL (3.80-5.20); WHITE BLOOD COUNT 25.1 K/uL (4.1-10.2)
[2018-01-19 14:56] LABS: MCV 87.5 FL (83-99)
[2018-01-19 15:00] LABS: ALBUMIN 2.7 g/dL (3.2-4.8); CHLORIDE 92 mEq/L (99-109); POTASSIUM 5.5 mEq/L (3.7-5.4); SODIUM 135 mEq/L (136-147)
[2018-01-19 15:01] LABS: INTER. NORMALIZED RATIO 1.2
[2018-01-19 15:04] LABS: TOTAL BILIRUBIN 0.3 mg/dL (0.0-1.0)
[2018-01-19 15:06] LABS: ALKALINE PHOSPHATASE 162 IU/L (3-129); CREATININE 6.9 mg/dL (0.6-1.3); GFR ESTIMATE (CALCULATED) 6 mL/min/
[2018-01-19 15:09] LABS: ALT (GPT) 654 IU/L (3-49); LIPASE 47 U/L (1.0-51.0)
[2018-01-19 15:15] LABS: TROP-I INTERPRETATION NEGATIVE; TROPONIN-I 0.11 ng/mL (0.0-0.30)
[2018-01-19 15:18] LABS: AST (GOT) 1007 IU/L (2-34); UREA NITROGEN (BUN) 191 mg/dL (9-23)
[2018-01-19 15:19] LABS: GLUCOSE 511 mg/dL (70-99)
[2018-01-19 15:26] LABS: TOTAL PROTEIN 6.5 g/dL (6.4-8.3)
[2018-01-19 16:14] LABS: APPEARANCE TURBID ((CLEAR)); BILIRUBIN NEGATIVE; BLOOD MODERATE; COLOR AMBER ((YELLOW)); GLUCOSE (STRIP) NEGATIVE; KETONES 5; LEUKOCYTES MODERATE; NITRITE NEGATIVE; PROTEIN (STRIP) >=500; UROBILINOGEN 0.2 MG/DL (0.2-1.0)
[2018-01-19 16:17] LABS: UCUL ADDED? YES; WHITE BLOOD CELLS TNTC /HPF (0-5)
[2018-01-19 17:18] LABS: CARBOXY HGB 0 % (0-5); METHEMOGLOBIN 2.4 % (0-1.5); PCO2 20 mm Hg (35-45); PO2 534 mm Hg (80-100)
[2018-01-19 17:19] LABS: COMMENTS - BLOOD GASES C+; DEVICE VENT; FI02 100 %; MECHANICAL RATE 18 resp/min; MODE ACVC; PEEP 5 CM/H20; SITE RR; TIDAL VOLUME 450 ML; TOTAL RESP RATE 24 resp/min
[2018-01-19 17:20] LABS: pH < 6.92 (7.35-7.45)
[2018-01-19 18:47] LABS: HEMATOCRIT 26.3 % (36.0-46.0); MCH 27.5 PG (29.0-34.0); MCHC 30.4 G/DL (30.0-36.0); MCV 90.4 FL (83-99); NRBC (%) 0.5 /100 WBC (0-0); PLATELET COUNT 331 K/uL (156-360); RBC DIS.WIDTH-CV 16.8 % (11.8-14.6); RED BLOOD COUNT 2.91 M/uL (3.80-5.20); WHITE BLOOD COUNT 23.6 K/uL (4.1-10.2)
[2018-01-19 19:09] LABS: POTASSIUM 5.2 mEq/L (3.7-5.4)
[2018-01-19 19:10] LABS: SODIUM 138 mEq/L (136-147)
[2018-01-19 19:11] LABS: GLUCOSE 395 mg/dL (70-99)
[2018-01-19 19:15] LABS: GFR ESTIMATE (CALCULATED) 7 mL/min/
[2018-01-19 19:25] LABS: CARBOXY HGB 0 % (0-5); COMMENTS - BLOOD GASES C+; DEVICE VENT; FI02 50 %; MECHANICAL RATE 18 resp/min; METHEMOGLOBIN 1.9 % (0-1.5); MODE ACVC; PCO2 20 mm Hg (35-45); PEEP 5 CM/H20; PO2 259 mm Hg (80-100); SITE RR; TIDAL VOLUME 450 ML; TOTAL RESP RATE 24 resp/min; pH < 6.92 (7.35-7.45)
[2018-01-19 19:58] LABS: CHLORIDE 102 mEq/L (99-109)
[2018-01-19 19:59] LABS: UREA NITROGEN (BUN) 169 mg/dL (9-23)
[2018-01-19 20:33] LABS: ABS NEUTROPHIL COUNT 20.8; ANISOCYTOSIS 2+; BAND NEUTROPHILS 15.6 % (0-8.0); BURR CELLS 2+; EOSINOPHIL ABS CT 0.1; EOSINOPHILS 0.4 % (0-5.0); LYMPHOCYTES 10.8 % (15.0-45.0); METAMYELOCYTES 0.9 %; MONOCYTES 3.9 % (0-9.0); MYELOCYTES 1.3 %; OVALOCYTES 1+; PLAT.SUFFICIENCY ADEQUATE; POIKILOCYTOSIS 3+; POLYCHROMASIA 1+; SEG.NEUTROPHILS 67.1 % (46.0-76.0); SPHEROCYTES 1+; TOX.VACUOLIZATION 2+; TOXIC GRANULATION 1+
[2018-01-19 21:20] VITALS: BP 84/35
[2018-01-19 21:28] LABS: HEMATOCRIT 26.1 % (36.0-46.0); MCH 26.8 PG (29.0-34.0); MCHC 30.7 G/DL (30.0-36.0); MCV 87.3 FL (83-99); NRBC (%) 0.4 /100 WBC (0-0); PLATELET COUNT 305 K/uL (156-360); RBC DIS.WIDTH-CV 16.7 % (11.8-14.6); RBC DIS.WIDTH-SD 53.5 % (39-53); RED BLOOD COUNT 2.99 M/uL (3.80-5.20); WHITE BLOOD COUNT 25.7 K/uL (4.1-10.2)
[2018-01-19 21:41] LABS: BASE EXCESS -20.7 mEq/L (-3 to +3); BICARBONATE 8.3 mEq/L (22-26); CARBOXY HGB 0 % (0-5); METHEMOGLOBIN 3.4 % (0-1.5); PCO2 30 mm Hg (35-45); PO2 51 mm Hg (80-100); SITE CENTRAL LINE; pH 7.05 (7.35-7.45)
[2018-01-19 21:42] LABS: COMMENTS - BLOOD GASES C+VENOUS SAMPLE; DEVICE VENT; FI02 40 %; MECHANICAL RATE 18 resp/min; MODE ACVC; PEEP 5 CM/H20; TIDAL VOLUME 450 ML; TOTAL RESP RATE 18 resp/min
[2018-01-19 21:45] LABS: BASE EXCESS -21.3 mEq/L (-3 to +3); BICARBONATE 7.4 mEq/L (22-26); CARBOXY HGB 0 % (0-5); METHEMOGLOBIN 2.4 % (0-1.5); PCO2 26 mm Hg (35-45); PO2 130 mm Hg (80-100); pH 7.06 (7.35-7.45)
[2018-01-19 21:46] LABS: COMMENTS - BLOOD GASES C+; DEVICE VENT; FI02 40 %; MECHANICAL RATE 18 resp/min; MODE ACVC; PEEP 5 CM/H20; SITE ALINE; TIDAL VOLUME 450 ML; TOTAL RESP RATE 18 resp/min
[2018-01-19 21:59] LABS: TROP-I INTERPRETATION INDETERMINATE; TROPONIN-I 0.42 ng/mL (0.0-0.30)
[2018-01-19 22:04] LABS: ALKALINE PHOSPHATASE 222 IU/L (3-129); ALT (GPT) 616 IU/L (3-49); CHLORIDE 94 MEQ/L (99-109); CREATININE 5.4 MG/DL (0.6-1.3); GFR ESTIMATE (CALCULATED) 8 mL/min/; GLUCOSE 461 mg/dL (70-99); MAGNESIUM 2.5 mg/dl (1.3-2.7); POTASSIUM 5.1 MEQ/L (3.7-5.4); SODIUM 140 MEQ/L (136-147); TOTAL BILIRUBIN 0.4 MG/DL (0.0-1.0); UREA NITROGEN (BUN) 176 mg/dL (9-23)
[2018-01-19 22:05] LABS: AST (GOT) 1189 IU/L (2-34)
[2018-01-19 22:08] VITALS: BP 86/59
[2018-01-19 22:19] LABS: ABS NEUTROPHIL COUNT 23.4; ANISOCYTOSIS 1+; BAND NEUTROPHILS 25.6 % (0-8.0); BURR CELLS 3+; EOSINOPHIL ABS CT 0; LYMPHOCYTES 4.3 % (15.0-45.0); METAMYELOCYTES 0.9 %; MICROCYTOSIS 2+; MONOCYTES 3.9 % (0-9.0); NUCLEATED RBC'S 2.2; OVALOCYTES 2+; PLAT.SUFFICIENCY ADEQUATE; POIKILOCYTOSIS 3+; POLYCHROMASIA 1+; SEG.NEUTROPHILS 65.3 % (46.0-76.0); SPHEROCYTES 1+; TOX.VACUOLIZATION 2+; TOXIC GRANULATION 1+
[2018-01-20 04:07] LABS: MAGNESIUM 1.8 mg/dL (1.3-2.7)
[2018-01-20 04:12] LABS: PHOSPHORUS 9.8 mg/dL (2.5-4.9)
[2018-01-20 04:13] LABS: ALBUMIN 1.8 g/dL (3.2-4.8); CHLORIDE 93 mEq/L (99-109); POTASSIUM 5.2 mEq/L (3.7-5.4); SODIUM 137 mEq/L (136-147)
[2018-01-20 04:18] LABS: TOTAL BILIRUBIN 0.3 mg/dL (0.0-1.0)
[2018-01-20 04:19] LABS: ALKALINE PHOSPHATASE 150 IU/L (3-129); CREATININE 5.5 mg/dL (0.6-1.3); GFR ESTIMATE (CALCULATED) 8 mL/min/
[2018-01-20 04:22] LABS: ALT (GPT) 652 IU/L (3-49); TOTAL PROTEIN 3.8 g/dL (6.4-8.3)
[2018-01-20 04:36] LABS: GLUCOSE 680 mg/dL (70-99); UREA NITROGEN (BUN) 171 mg/dL (9-23)
[2018-01-20 04:37] LABS: AST (GOT) 1408 IU/L (2-34)
== END 2018-01-20 04:39 | DRG 291 ==
LOC: EME 14:13 → EDOF 18:43 → ENRESERV 18:45 → 4WEST 20:48
PROVIDERS: Emergency Medicine; Specialist
PROC: 04HY32Z Insertion of Monitoring Device into Lower Artery, Percutaneous Approach (ICD-10-PCS; principal; 2018-01-19)
PROC: 02HV33Z Insertion of Infusion Device into Superior Vena Cava, Percutaneous Approach (ICD-10-PCS; principal; 2018-01-19)
PROC: 5A1935Z Respiratory Ventilation, Less than 24 Consecutive Hours (ICD-10-PCS; principal; 2018-01-19)
DX: R57.0 Cardiogenic shock (principal); G93.1 Anoxic brain damage, not elsewhere classified; K72.00 Acute and subacute hepatic failure without coma; N17.9 Acute kidney failure, unspecified; R68.0 Hypothermia, not associated with low environmental temperature; R23.0 Cyanosis; E87.2 Acidosis; N39.0 Urinary tract infection, site not specified; E11.65 Type 2 diabetes mellitus with hyperglycemia; I11.0 Hypertensive heart disease with heart failure; I50.9 Heart failure, unspecified; E11.51 Type 2 diabetes mellitus with diabetic peripheral angiopathy without gangrene; E11.42 Type 2 diabetes mellitus with diabetic polyneuropathy; Z66 Do not resuscitate; J32.8 Other chronic sinusitis; D64.9 Anemia, unspecified; R33.9 Retention of urine, unspecified; E78.00 Pure hypercholesterolemia, unspecified; K21.9 Gastro-esophageal reflux disease without esophagitis; Z79.4 Long term (current) use of insulin; I25.2 Old myocardial infarction; Z85.42 Personal history of malignant neoplasm of other parts of uterus
CPT/HCPCS: 36600; 70450; 71045; 80048 91; 80053; 81003; 82803; 83605; 83690; 83735; 84100; 84484; 85025; 85025 91; 85027; 85610; 86850; 86900; 86901; 87040; 87070; 87077; 87086; 87186; 87205; 87641; 93005; 99281; 99285; C1751; J0171; J0692; J1265; J1956; J2250; J2270; J2543; J3370; J7030; J7050; J7070; J7120